=== PATIENT | female | born 1945 | race Hispanic/Latino ===

== ENCOUNTER 2017-12-14 15:28 | Emergency (ER) | payer MEDICARE ==
[~2017-12-14] VITALS: Ht 162.6 cm; Wt 93.0 kg
[~2017-12-14 15:28] MED LIST: ASPIR 8181 MG PO; CENTRUM SILVER1 EAC3 PO; HYDROCHLOROTHIA25 MG PO; JANUVIA100 MG PO; LEVETIRACETAM500 MG PO; LISINOPRIL10 MG PO; METFORMIN HCL500 MG PO; METOPROLOL TART50 MG PO; NAMENDA10 MG PO; NIFEDIPINE ER30 M1 PO; SIMVASTATIN20 MG PO
[2017-12-14 16:59] LABS: CLARITY,URINE TURBID (CLEAR); COLOR,URINE YELLOW (YELLOW)
[2017-12-14 17:00] LABS: LEUKOCYTE ESTERASE ,URINE 2+ (NEGATIVE)
[2017-12-14 17:01] LABS: BILIRUBIN,URINE NEGATIVE (NEGATIVE); KETONES,URINE NEGATIVE (NEGATIVE); NITRITE,URINE NEGATIVE (NEGATIVE); PROTEIN,URINE DIPSTICK 2+ (NEGATIVE); URINE UROBILINOGEN 0.2 mg/dL (0.2 - 1); WBC,URINE (MAN) >50 /HPF (0-5)
[2017-12-14 17:02] LABS: BACTERIA,URINE MODERATE /HPF; EPITHELIAL CELLS,URINE FEW /LPF; RBC,URINE 21-50 /HPF (0-5)
[2017-12-14] MEDS ORDERED: CEFTRIAXONE SOD 1 GM VIAL IM ONE (17:15)
== END 2017-12-14 18:04 | disposition home or self-care (01) ==
LOC: ER 15:28
DX: R33.9 Retention of urine, unspecified (principal); N30.01 Acute cystitis with hematuria
CPT/HCPCS: 51702; 81001; 87086; 87186; 99284; J0696; 51700

== ENCOUNTER 2018-02-11 16:31 | Emergency (ER) | payer MEDICARE ==
[~2018-02-11] VITALS: Ht 162.6 cm; Wt 93.0 kg
--- OUTSIDE RECORDS SUMMARY | 2018-02-11 16:33 | XMS REPORT | Continuity of Care Document ---
Author Author [facility] Interface Address Unknown Phone Unavailable Problems Problem Status Onset Date Classification Date Reported Comments Source Z12.31 - ENCNTR SCREEN MAMMOGRAM FOR MA Active 03/02/2015 [facility] 401.9 - HYPERTENSION NO Active 04/14/2013 [facility] Medications Medication Details Route Status Patient Instructions Ordering Provider Order Date Source Allergies, Adverse Reactions, Alerts Substance Category Reaction Severity Reaction type Status Date Reported Comments Source Immunizations Immunization Date Given Site Status Last Updated Comments Source Results Order Name Results Value Reference Range Date Interpretation Comments Source Knee 1-2 Views Bilateral DX Knee 1-2 Views Bilateral DX EXAM: Knee 1-2 Views Bilateral DX HISTORY: M25.562 Pain in left knee - M25.561 Pain in right knee COMPARISON: None AP and lateral views of both knees. The bones are osteopenic. There is a moderate right joint effusion and trace left joint effusion. There are small patellofemoral osteophytes on the right and trace on the left. Small right medial and lateral tibiofemoral osteophytes. No fracture or dislocation. IMPRESSION: Degenerative change of both knees as described above. Osteopenia. 09/05/2017 - - Read by: Larissa Haney MD Dictated Date/time: 09/05/17 15:41 Electronically Signed by: Larissa Haney MD 09/05/17 15:45 FINAL REPORT [facility] Digital Mammo Screening [facility] [place] Digital Mammo Screening Paul MA - DIGITAL MAMMO SCREENING PAUL MA BILATERAL DIGITAL SCREENING MAMMOGRAM WITH CAD: 03/28/2015 CLINICAL: Z12.31 Encounter For Screening Mammogram For Malignant Neoplasm Of Breast. Current study was evaluated with a Computer Aided Detection (CAD) system. Comparison is made to exam dated: 05/13/2013 mammogram - [facility]. There are scattered fibroglandular densities in both breasts. There are benign vascular calcifications in both breasts. There also are benign scattered calcifications in both breasts. No significant masses, calcifications, or other findings are seen in either breast. There has been no significant interval change. IMPRESSION: BENIGN There is no mammographic evidence of malignancy. A 1 year screening mammogram is recommended. Edgardo Solo M.D. cm/penrad:03/28/2015 15:04:05 Electrical Engineering Drafting Officer: Kimberly Morelos, [facility] This exam was dictated and interpreted by [id number] for JOSSELINE Wade. letter sent: Normal exam Mammogram BI-RADS: 2 Benign 03/28/2015 - - Read by: Ramon Bravo MD Dictated Date/time: 03/28/15 15:04 Electronically Signed by: Ramon Bravo MD 03/28/15 15:04 FINAL REPORT JOSSELINE Wade Digital Mammo Screening Paul MA Digital Mammo Screening Paul MA - DIGITAL MAMMO SCREENING PAUL MA BILATERAL DIGITAL SCREENING MAMMOGRAM WITH CAD: 05/13/2013 CLINICAL: Routine. Current study was evaluated with a Computer Aided Detection (CAD) system. No prior exams were available for comparison. There are scattered fibroglandular densities in both breasts. There are benign vascular calcifications and calcifications in both breasts. No significant masses, calcifications, or other findings are seen in either breast. IMPRESSION: BENIGN There is no mammographic evidence of malignancy. A screening mammogram in one year is recommended. Dontrell Navarro M.D. [facility]/penrad:05/13/2013 11:40:19 Electrical Engineering Drafting Officer: Ayaka COLON(R)(M), [facility] This exam was dictated and interpreted by [id number] for JOSSELINE Frazier. letter sent: Normal exam Mammogram BI-RADS: 2 Benign 05/13/2013 - - Read by: Dontrell Navarro Dictated Date/time: 05/13/13 11:40 Electronically Signed by: Dontrell Navarro MD 05/13/13 11:40 FINAL REPORT JOSSELINE Wade Bone Density-Dual Energy Absorptionmetry Bone Density-Dual Energy Absorptionmetry - Bone Density-Dual Energy Absorptionmetry BONE DENSITY EVALUATION: 05/13/2013 CLINICAL DATA: Clinical risk for osteoporosis. RISK FACTORS: . FINDINGS: Bone density evaluation was performed 05/13/2013 on the AP L1-L4 region of spine using Lunar Dual Energy X-Ray Absorptiometry. The BMD average for the exam is 0.974 g/cm2. The T-score is -1.70 and the Z-score is -0.90. These values indicate 90.0% for age-matched controls. This matches the World Health Organization's criteria for osteopenia and places the patient at a medium risk for fracture. An additional bone density evaluation was performed 05/13/2013 on the right femur neck using Lunar Dual Energy X-Ray Absorptiometry. The BMD average for the exam is 0.828 g/cm2. The T-score is -1.50 and the Z-score is -0.50. These values indicate 92.0% for age-matched controls. This matches the World Health Organization's criteria for osteopenia and places the patient at a medium risk for fracture. An additional bone density evaluation was performed 05/13/2013 on the right hip using Lunar Dual Energy X-Ray Absorptiometry. The BMD average for the exam is 0.861 g/cm2. The T-score is -1.20 and the Z-score is -0.50. These values indicate 93.0% for age-matched controls. This matches the World Health Organization's criteria for osteopenia and places the patient at a medium risk for fracture. An additional bone density evaluation was performed 05/13/2013 on the left femur neck using Lunar Dual Energy X-Ray Absorptiometry. The BMD average for the exam is 0.855 g/cm2. The T-score is -1.30 and the Z-score is -0.30. These values indicate 95.0% for age-matched controls. This matches the World Health Organization's criteria for osteopenia and places the patient at a medium risk for fracture. An additional bone density evaluation was performed 05/13/2013 on the left hip using Lunar Dual Energy X-Ray Absorptiometry. The BMD average for the exam is 0.920 g/cm2. The T-score is -0.70. These values indicate 100.0% for age- matched controls. This matches the World Health Organization's criteria for normal bone density and places the patient within normal limits of fracture risk. IMPRESSION: OSTEOPENIA Patient is at medium risk for fracture. Dontrell jha/kee:05/13/2013 10:25:20 Electrical Engineering Drafting Officer: Merari Culver 05/13/2013 - - Read by: Dontrell Navarro Dictated Date/time: 05/13/13 10:25 Electronically Signed by: Dontrell Navarro MD 05/13/13 10:25 FINAL REPORT [facility] Chest 2 views Chest 2 views CHEST RADIOGRAPHY CLINICAL HISTORY: Hypertension. COMPARISON IMAGING: None. FINDINGS: Two views of the chest were acquired and submitted for evaluation. No pleural fluid is identified. The contour of the cardiac silhouette is within normal limits. There is no significant pulmonary consolidation or nodularity. Bones appear osteopenic. DEXA scan should be considered if not already performed. IMPRESSION: No acute cardiopulmonary abnormality. 04/14/2013 - - Read by: Bubba Guaman Dictated Date/time: 04/14/13 09:00 Electronically Signed by: Bubba Guaman MD 04/14/13 09:01 FINAL REPORT [facility] Vital Signs Vital Sign Value Date Comments Source Encounters Location Location Details Encounter Type Encounter Number Reason For Visit Attending Provider ADM Date DC Date Status Source OD [id number] 401.9 - HYPERTENSION NO [place] 04/14/2013 Active [facility] [id number] [place] 03/28/2015 03/29/2015 [facility] [id number] [place] 09/05/2017 09/06/2017 [facility] Procedures Procedure Code Date Perfomer Comments Source
[2018-02-11] MEDS ORDERED: MEROPENEM 1GM 100 ML IV STA (16:53)
[2018-02-11] MEDS ORDERED: SODIUM CHLORIDE 0.9% 1000ML 1,000 ML IV STA (16:53)
[2018-02-11] MEDS ORDERED: MEROPENEM 1 GM VIAL IV ONE (17:20)
[2018-02-11 18:04] LABS: BASOPHILS # (AUTO) 0.1 (0.0-0.1); BASOPHILS % 0.4 % (0.0-1.0); EOSINOPHILS # (AUTO) 0.2 (0.0-0.4); EOSINOPHILS % 2.1 % (0.0-6.0); HEMATOCRIT 44.2 % (34.2-44.1); HEMOGLOBIN 14.4 g/dL (12.0-16.0); LYMPHOCYTES # (AUTO) 3.2 (1.0-3.2); LYMPHOCYTES % 28.5 % (18.0-39.1); MEAN CORPUSCULAR HEMOGLOBIN 25.2 pg (28-32); MEAN CORPUSCULAR HGB CONC 32.6 g/dL (31-35); MEAN CORPUSCULAR VOLUME 77.4 fL (81-99); MONOCYTES % 9.2 % (4.4-11.3); NEUTROPHILS # (AUTO) 6.6 (2.1-6.9); NEUTROPHILS % 59.4 % (38.7-80.0); PLATELET COUNT 275 x10e3/uL (140-360); RED BLOOD COUNT 5.71 x10e6/uL (3.6-5.1); RED CELL DISTRIBUTION WIDTH 14.2 % (11.7-14.4)
[2018-02-11 18:22] LABS: ALANINE AMINOTRANSFERASE 19 IU/L (0-55); ALBUMIN 3.2 g/dL (3.5-5.0); ALBUMIN/GLOBULIN RATIO 0.7 (0.8-2.0); ALKALINE PHOSPHATASE 106 IU/L (40-150); ANION GAP 18.9 mmol/L (8-16); BLOOD UREA NITROGEN 20 mg/dL (7-26); BUN/CREATININE RATIO 24 (6-25); CALCIUM 9.9 mg/dL (8.4-10.2); CARBON DIOXIDE 20 mmol/L (22-29); CHLORIDE 99 mmol/L (98-107); CREATININE, SERUM 0.85 mg/dL (0.57-1.11); EST GLOMERULAR FILTRATION RATE > 60 ML/MIN (60-); GLUCOSE 243 mg/dL (74-118); POTASSIUM 3.9 mmol/L (3.5-5.1); SODIUM 134 mmol/L (136-145)
[2018-02-11 18:45] LABS: CLARITY,URINE CLOUDY (CLEAR); COLOR,URINE YELLOW (YELLOW); LEUKOCYTE ESTERASE ,URINE 2+ (NEGATIVE); NITRITE,URINE NEGATIVE (NEGATIVE)
[2018-02-11 18:46] LABS: BILIRUBIN,URINE NEGATIVE (NEGATIVE); KETONES,URINE NEGATIVE (NEGATIVE); PROTEIN,URINE DIPSTICK 2+ (NEGATIVE); URINE UROBILINOGEN 0.2 mg/dL (0.2 - 1)
[2018-02-11 18:59] LABS: WBC,URINE (MAN) >50 /HPF (0-5)
[2018-02-11 19:00] LABS: BACTERIA,URINE MANY /HPF; EPITHELIAL CELLS,URINE FEW /LPF; RBC,URINE 21-50 /HPF (0-5)
[2018-02-11 19:28] VITALS: BP 140/88
== END 2018-02-11 20:20 | disposition home or self-care (01) ==
LOC: ER 16:31
DX: R30.0 Dysuria (principal); R11.0 Nausea; R10.2 Pelvic and perineal pain; N30.01 Acute cystitis with hematuria; R26.2 Difficulty in walking, not elsewhere classified
CPT/HCPCS: 36415; 51702; 80053; 81001; 85025; 87086; 87186; 99284; J2185; J7030; 51700

== ENCOUNTER 2018-04-05 12:18 | Emergency (ER) | payer MEDICARE ==
[~2018-04-05] VITALS: Ht 162.6 cm; Wt 93.0 kg
[2018-04-05 14:50] LABS: CLARITY,URINE CLOUDY (CLEAR); COLOR,URINE YELLOW (YELLOW); KETONES,URINE NEGATIVE (NEGATIVE); LEUKOCYTE ESTERASE ,URINE 2+ (NEGATIVE); NITRITE,URINE NEGATIVE (NEGATIVE); PROTEIN,URINE DIPSTICK NEGATIVE (NEGATIVE); URINE UROBILINOGEN 0.2 mg/dL (0.2 - 1)
[2018-04-05 14:51] LABS: BILIRUBIN,URINE NEGATIVE (NEGATIVE)
[2018-04-05 15:01] LABS: BACTERIA,URINE MANY /HPF; WBC,URINE (MAN) >50 /HPF (0-5)
[2018-04-05 15:03] LABS: EPITHELIAL CELLS,URINE FEW /LPF; RBC,URINE 21-50 /HPF (0-5)
[2018-04-05] MEDS ORDERED: MACROBID 100 M100 MG PO (15:28)
== END 2018-04-05 15:50 | disposition home or self-care (01) ==
LOC: ER 12:18
DX: T83.018A Breakdown (mechanical) of other urinary catheter, initial encounter (principal); N30.91 Cystitis, unspecified with hematuria; I10 Essential (primary) hypertension; E11.9 Type 2 diabetes mellitus without complications; E78.5 Hyperlipidemia, unspecified; Z85.828 Personal history of other malignant neoplasm of skin; Z86.711 Personal history of pulmonary embolism
CPT/HCPCS: 51700; 81001; 87086; 87186; 99284

== ENCOUNTER 2018-04-25 12:17 | Inpatient (IN) | payer MEDICARE ==
[~2018-04-25] VITALS: Ht 149.9 cm; Wt 105.2 kg
[2018-04-25] MEDS: ACETAMINOPHEN 325 MG TAB PO PRN (11:00)
[2018-04-25] MEDS: MEROPENEM 1GM 100 ML IV SCH ×2 (11:40→16:20)
[~2018-04-25 12:17] MED LIST changes: +MACROBID 100 M100 MG PO
[2018-04-25] MEDS ORDERED: FLUCONAZOLE 200 MG/100 ML 100 ML IV ONE (13:30)
[2018-04-25 14:02] LABS: BASOPHILS # (AUTO) 0.1 (0.0-0.1); BASOPHILS % 0.2 % (0.0-1.0); HEMATOCRIT 42.5 % (34.2-44.1); HEMOGLOBIN 13.8 g/dL (12.0-16.0); LYMPHOCYTES # (AUTO) 1.2 (1.0-3.2); LYMPHOCYTES % 5.6 % (18.0-39.1); MEAN CORPUSCULAR HEMOGLOBIN 25.5 pg (28-32); MEAN CORPUSCULAR HGB CONC 32.5 g/dL (31-35); MEAN CORPUSCULAR VOLUME 78.6 fL (81-99); MONOCYTES # (AUTO) 1.4 (0.2-0.8); MONOCYTES % 6.5 % (4.4-11.3); NEUTROPHILS # (AUTO) 18.6 (2.1-6.9); NEUTROPHILS % 86.9 % (38.7-80.0); PLATELET COUNT 259 x10e3/uL (140-360); RED BLOOD COUNT 5.41 x10e6/uL (3.6-5.1); RED CELL DISTRIBUTION WIDTH 14.7 % (11.7-14.4)
[2018-04-25 14:13] LABS: BILIRUBIN,URINE NEGATIVE (NEGATIVE); CLARITY,URINE HAZY (CLEAR); COLOR,URINE YELLOW (YELLOW); KETONES,URINE NEGATIVE (NEGATIVE); LEUKOCYTE ESTERASE ,URINE 2+ (NEGATIVE); NITRITE,URINE NEGATIVE (NEGATIVE); PROTEIN,URINE DIPSTICK 1+ (NEGATIVE); URINE UROBILINOGEN 0.2 mg/dL (0.2 - 1)
[2018-04-25 14:22] LABS: WBC,URINE (MAN) >50 /HPF (0-5)
[2018-04-25 14:23] LABS: BACTERIA,URINE MANY /HPF
[2018-04-25 14:23] LABS: ALANINE AMINOTRANSFERASE 22 IU/L (0-55); ALBUMIN 3.2 g/dL (3.5-5.0); ALBUMIN/GLOBULIN RATIO 0.8 (0.8-2.0); ALKALINE PHOSPHATASE 115 IU/L (40-150); ANION GAP 15.2 mmol/L (8-16); BLOOD UREA NITROGEN 21 mg/dL (7-26); BUN/CREATININE RATIO 27 (6-25); CALCIUM 9.4 mg/dL (8.4-10.2); CARBON DIOXIDE 22 mmol/L (22-29); CHLORIDE 99 mmol/L (98-107); CREATININE, SERUM 0.77 mg/dL (0.57-1.11); EST GLOMERULAR FILTRATION RATE > 60 ML/MIN (60-); GLUCOSE 323 mg/dL (74-118); POTASSIUM 4.2 mmol/L (3.5-5.1); SODIUM 132 mmol/L (136-145)
--- NOTE | 2018-04-25 14:50 | NUR ---
Krys lopez in [facility] - 04/25/18 at 1547 by JUAN PATIENT NOT IN ROOM FOR EVALUATION. THEY ARE IN RADIOLOGY
[2018-04-25] MEDS ORDERED: SODIUM CHLORIDE 0.9% 1000ML 1,000 ML IV ONE (15:45)
[2018-04-25] MEDS ORDERED: SODIUM CHLORIDE FLUSH 10 ML SYR INJ PRN (15:45)
[2018-04-25] MEDS ORDERED: INSULIN REGULAR, HUMAN 100 UNIT/1 ML 3ML VIAL SQ ONE (15:45)
[2018-04-25] MEDS ORDERED: DEXTROSE 50% SYRINGE 50 ML IV PRN (15:45)
[2018-04-25] MEDS ORDERED: KETOROLAC TROMETHAMINE 30 MG/ML VIAL IV ONE (15:45)
[2018-04-25] MEDS ORDERED: ONDANSETRON HCL INJ 2MG/ML 2ML 2 MG/ML VIAL IV PRN (15:45)
--- NOTE | 2018-04-25 15:47 | NUR ---
PATIENT CONTINUALLY TAKING OFF PULSE OX AND BP CUFF. SON AT BEDSIDE REMINDING HER WE NEED TO KEEP IT ON. PATIENT A/O X 3.
[2018-04-25] MEDS ORDERED: MORPHINE SULFATE INJ 4 MG/ML INJ 1ML IV PRN (16:00)
[2018-04-25] MEDS ORDERED: MORPHINE SULFATE 2 MG/ML SYR 1ML IV PRN (17:00)
[2018-04-25 17:23] VITALS: BP 119/58
--- NOTE | 2018-04-25 17:23 | NUR ---
Received patient from ER via stretcher. Accompanied by . AAOX3 to time, person, place. Luxembourger speaking. Respirations even and unlabored. 16F bruce draining cloudy yellow urine. Sediment noted. Oriented patient and to room. Instructed to use call light for assistance. Voiced understanding.
[2018-04-25] MEDS ORDERED: ACETAMINOPHEN 325 MG TAB PO PRN (17:30)
[2018-04-25] MEDS ORDERED: HYDRALAZINE HCL 20 MG/ML VIAL IV PRN (17:30)
[2018-04-25] MEDS: SODIUM CHLORIDE 0.9% 1000ML 1,000 ML IV SCH (17:40)
[2018-04-25] MEDS: INSULIN REGULAR, HUMAN 100 UNIT/1 ML 3ML VIAL SQ SCH (17:40)
[2018-04-25 17:45] VITALS: BP 119/58
[2018-04-25] MEDS ORDERED: ATORVASTATIN CA10 MG PO (18:03)
[2018-04-25] MEDS ORDERED: CYMBALTA20 MG PO (18:03)
[2018-04-25] MEDS ORDERED: ACETAMINOPHEN325 M1 PO (18:03)
[2018-04-25] MEDS ORDERED: GABAPENTIN100 MG PO (18:03)
[2018-04-25] MEDS ORDERED: GLIMEPIRIDE2 MG PO (18:03)
[2018-04-25] MEDS ORDERED: WARFARIN SODIUM2 MG PO (18:03)
[2018-04-25] MEDS ORDERED: TRADJENTA5 MG PO (18:03)
[2018-04-25] MEDS ORDERED: LOSARTAN POTASS25 MG PO (18:03)
[2018-04-25] MEDS ORDERED: PROBIOTIC & AC1 EACH PO (18:03)
--- NOTE | 2018-04-25 18:25 | NUR ---
Sam LUCIA aware of WBC 21.39 and T100.4. See orders.
[2018-04-25 18:35] VITALS: BP 119/59
--- NOTE | 2018-04-25 18:48 | NUR ---
handoff report rec'd during walking rounds.
[2018-04-25 19:30] VITALS: BP 110/57
[2018-04-25] MEDS: ATORVASTATIN 10 MG TAB PO SCH (21:50)
[2018-04-25] MEDS: GABAPENTIN 100 MG CAP PO SCH (21:50)
[2018-04-25 23:00] VITALS: BP 119/59
--- NOTE | 2018-04-25 23:26 | NUR ---
CALL PLACED TO KHARI LAWRENCE TO INFORM OF SIRS ALERT.
[2018-04-26] VITALS (7 sets, daily range): BP systolic 109–143; BP diastolic 53–75
[2018-04-26] MEDS: SODIUM CHLORIDE 0.9% 1000ML 1,000 ML IV SCH ×4 (00:04→18:32)
[2018-04-26] MEDS ORDERED: ACETAMINOPHEN 1000 MG/100 ML IV STA (00:09)
--- NOTE | 2018-04-26 00:10 | NUR ---
CALL PLACED TO KHARI RAMIREZ TO INFORM OF ELEVATED TEMPERATURE AND HR. ORDERS REC'D.
[2018-04-26] MEDS ORDERED: METOPROLOL TARTRATE INJ 1 MG/ML VIAL IV PRN ×2 (00:15)
--- NOTE | 2018-04-26 00:42 | NUR ---
STAT LABS DRAWN AND SENT TO LAB AT THIS TIME; 12 LEAD EKG AT BEDSIDE NOW; RADIOLOGY AWARE OF STAT CXR.
[2018-04-26 01:17] LABS: BASOPHILS % 0.2 % (0.0-1.0); EOSINOPHILS % 0.1 % (0.0-6.0); HEMATOCRIT 36.7 % (34.2-44.1); LYMPHOCYTES # (AUTO) 0.7 (1.0-3.2); LYMPHOCYTES % 3.8 % (18.0-39.1); MEAN CORPUSCULAR HEMOGLOBIN 25.8 pg (28-32); MEAN CORPUSCULAR HGB CONC 32.7 g/dL (31-35); MEAN CORPUSCULAR VOLUME 78.9 fL (81-99); MONOCYTES # (AUTO) 1.5 (0.2-0.8); MONOCYTES % 8.5 % (4.4-11.3); NEUTROPHILS # (AUTO) 14.9 (2.1-6.9); NEUTROPHILS % 86.9 % (38.7-80.0); PLATELET COUNT 194 x10e3/uL (140-360); RED BLOOD COUNT 4.65 x10e6/uL (3.6-5.1)
[2018-04-26 01:36] LABS: ALANINE AMINOTRANSFERASE 17 IU/L (0-55); ALBUMIN 2.6 g/dL (3.5-5.0); ALBUMIN/GLOBULIN RATIO 0.8 (0.8-2.0); ALKALINE PHOSPHATASE 91 IU/L (40-150); ANION GAP 11.2 mmol/L (8-16); BLOOD UREA NITROGEN 16 mg/dL (7-26); BUN/CREATININE RATIO 28 (6-25); CALCIUM 8.2 mg/dL (8.4-10.2); CARBON DIOXIDE 21 mmol/L (22-29); CHLORIDE 104 mmol/L (98-107); CREATININE, SERUM 0.58 mg/dL (0.57-1.11); EST GLOMERULAR FILTRATION RATE > 60 ML/MIN (60-); GLUCOSE 197 mg/dL (74-118); SODIUM 133 mmol/L (136-145)
[2018-04-26 01:45] LABS: POTASSIUM 3.2 mmol/L (3.5-5.1)
[2018-04-26 01:57] LABS: FREE T4 (FREE THYROXINE) 1.11 ng/dL (0.9-1.8); THYROID STIMULATING HORMONE 0.022 uIU/mL (0.350-4.940)
--- NOTE | 2018-04-26 02:04 | Diagnostic Imaging Report ---
EXAMINATION: CHEST SINGLE (PORTABLE) INDICATION: SEPSIS PROTOCOL COMPARISON: None FINDINGS: AP view TUBES and LINES: None. LUNGS: Low lung volumes with vascular crowding and bibasilar atelectasis. PLEURA: No pleural effusion or pneumothorax. HEART AND MEDIASTINUM: The cardiomediastinal silhouette is unremarkable for technique. BONES AND SOFT TISSUES: No acute osseous lesion. Soft tissues are unremarkable. UPPER ABDOMEN: No free air under the diaphragm. IMPRESSION: Low lung volumes with vascular crowding and bibasilar atelectasis. Signed by: DR. Dino Meehan MD on 04/26/2018 2:01 AM
--- NOTE | 2018-04-26 02:20 | NUR ---
temperature 99.8 via temporal artery.
[2018-04-26] MEDS ORDERED: MAGNESIUM SULF 1GRAM/DEXTROSE 100 ML IV PRN (02:45)
[2018-04-26] MEDS ORDERED: POTASSIUM CHLORIDE 20MEQ/100ML 200 ML IV ONE (02:45)
[2018-04-26 03:46] LABS: INR 1.06; PROTHROMBIN TIME 14.8 seconds (11.9-14.5)
--- NOTE | 2018-04-26 05:30 | NUR ---
URINARY CONSULTATION CALLED AT THIS TIME FOR DR. VALENTINA SOTEOL. PER MARIA GUADALUPE, ANSWERING SERVICE, DR. Alvina SOTELO IS COVERING.
--- NOTE | 2018-04-26 05:39 | NUR ---
Angelia Huntley NP rounding at bedside.
[2018-04-26] MEDS ORDERED: FUROSEMIDE INJ 10 MG/ML 2 ML VIAL IV ONE (06:15)
[2018-04-26] MEDS: INSULIN REGULAR, HUMAN 100 UNIT/1 ML 3ML VIAL SQ SCH ×4 (07:30→21:20)
--- NOTE | 2018-04-26 08:00 | Diagnostic Imaging Report ---
Knee limited right CPT code: 79392 Indication: Pain and limited range of motion status post fall Technique: AP and cross table lateral view obtained of the right knee. Comparison: None Findings: Study is compromised due to patient contraction. No evidence of fracture or dislocation on lateral image. AP image does not include the femur or patella. Visualized portions of the tibia and fibula are intact. No evidence of knee effusion or radiopaque foreign body. IMPRESSION: Compromised examination due to patient contraction. No fractures on provided images. Signed by: Dr. Jluis Delgado MD on 04/26/2018 7:57 AM
[2018-04-26] MEDS ORDERED: LEVETIRACETAM 500 MG TAB PO SCH (09:00)
[2018-04-26] MEDS ORDERED: MEMANTINE 10 MG TAB PO SCH (09:00)
[2018-04-26] MEDS ORDERED: METOPROLOL TARTRATE 50 MG TAB PO SCH (09:00)
[2018-04-26] MEDS: MEROPENEM 1GM 100 ML IV SCH ×3 (09:00→23:27)
[2018-04-26] MEDS ORDERED: DULOXETINE HCL 20 MG DELAYED RELEASE PO SCH (09:00)
[2018-04-26] MEDS: NON-FORMULARY MEDICATION (Linagliptin (Tradjenta) 5 MG) PO SCH (09:00)
[2018-04-26] MEDS: MEMANTINE 10 MG TAB PO SCH ×2 (11:00→21:19)
[2018-04-26] MEDS: GLIMEPIRIDE 2 MG TAB PO SCH ×2 (11:00→16:45)
[2018-04-26] MEDS: METOPROLOL TARTRATE 50 MG TAB PO SCH ×2 (11:00→21:19)
[2018-04-26] MEDS: DULOXETINE HCL 20 MG DELAYED RELEASE PO SCH ×2 (11:00→21:19)
[2018-04-26] MEDS: NIFEDIPINE CR 30 MG TAB PO SCH (11:00)
[2018-04-26] MEDS: LOSARTAN POTASSIUM 25 MG TAB PO SCH (11:00)
[2018-04-26] MEDS: LEVETIRACETAM 500 MG TAB PO SCH ×2 (11:00→21:19)
[2018-04-26] MEDS: LACTOBACILLUS ACIDOPHILUS CAPSULE PO SCH (11:00)
--- NOTE | 2018-04-26 11:00 | NUR ---
HOME MEDICATIONS VERIFIED WITH PT BOTTLES OF MEDICATION, TOLERATED AM MEDS
--- NOTE | 2018-04-26 12:24 | NUR ---
MD Alvina SOTELO INTO SEE PT, DISCUSSED POC , PT REPOSITIONED, HOB ELEVATED, LUNCH TRAY SET UP, CALL LIGHT WITHIN REACH
--- NOTE | 2018-04-26 13:21 | NUR ---
Nutrition Screen Note RD Recommendation for Physician: Continue diet as ordered Plan of Care: RD following, monitoring for adequacy and tolerance Nutrition reason for involvement: Nutrition Risk Trigger - MST Primary Diagnose(s): UTI Ht: 59in Wt:178.31lbs BMI:36 kg/m2 IBW:95lbs RD Assessment:04/26/2018 Initial encounter with Patient. Maori speaking patient. Maori speaking staff member translated for the RD during interview. Pt states that sometimes her medications decrease her appetite, but eats well otherwise. Pt denies N,V, D nor has any difficulty chewing or swallowing. Pt denies any wt changes. Current Diet: 1800 ADA diet Malnutrition Evaluation (04/26/2018) The patient does not meet criteria for a specified degree of malnutrition at this time. Will re-evaluate at follow-up as appropriate. Diet Education Needs Assessment: Diet education not indicated. Diet Adequacy: (Meeting calorie needs, Meeting protein needs, Meeting fluid needs, Not meeting calorie needs, Not meeting protein needs) Tolerance: Tolerating PO Nutrition Care Level: Morales Cho RD, LD, CNSC
[2018-04-26] MEDS: ACETAMINOPHEN 325 MG TAB PO PRN ×2 (16:44→23:24)
[2018-04-26] MEDS: WARFARIN SOD 2 MG TAB PO SCH (16:47)
[2018-04-26] MEDS: ATORVASTATIN 10 MG TAB PO SCH (21:19)
[2018-04-26] MEDS: GABAPENTIN 100 MG CAP PO SCH (21:19)
[2018-04-27] VITALS (8 sets, daily range): BP systolic 114–138; BP diastolic 58–72
--- NOTE | 2018-04-27 00:58 | Consultation ---
DATE OF CONSULTATION: April 26, 2018 SERVICE: Urology. ATTENDING PHYSICIAN: Dr. Cm Gaytan. REASON FOR THE VISIT: UTI. HISTORY OF PRESENT ILLNESS: This is a 72-year-old patient that was admitted to the hospital through the emergency room. The patient does have chronic indwelling Stanley catheter. She states the Stanley catheter has been there for over 4 months. She states that she did have a fall and is unable to walk, probably has not been walking for quite a longer time due to the contraction of her lower extremities. The patient is a relatively poor historian. REVIEW OF SYSTEMS: The patient denies any nausea or vomiting. No fever or chills. She did have some redness in the genital area, although this was negative. PAST MEDICAL HISTORY: As mentioned earlier. MEDICATIONS: See MAR. SOCIAL HISTORY: Never smoked. No use of alcohol or illicit drugs. FAMILY HISTORY: Hypertension. PHYSICAL EXAMINATION GENERAL: Patient appeared to be awake. VITAL SIGNS: Blood pressure 125/85, pulse 88, temperature 98.6, and respirations 18. HEENT: Head is symmetric. Eyes, normal movement. NECK: Supple. No CVA tenderness. Pulse regular. ABDOMEN: Soft, not tender. Bowel sounds present. EXTREMITIES: Significant contraction of lower extremities. It is difficult inspected even the genitalia, which appeared to be unremarkable. NEUROLOGICAL: She is oriented x3. LABORATORY DATA: Hemoglobin 12, white count 17.1, creatinine 0.58, BUN 16, sodium 133, potassium 3.2, chloride 104, and bicarb 21. INR 1.02. Urine, over 50 white blood cells per high-power field. IMPRESSION 1. Urinary tract infection. 2. Chronic Stanley. 3. Arthritis. 4. Contracted lower extremities. 5. History of back injury. 6. Leukocytosis. 7. Low potassium. PLAN: Recommend to keep the Stanley catheter in place and planning to follow the patient. Pending the culture, we will consider additional steps. Thank you for the consult. I will follow with you. Job#: [id number] LPA
[2018-04-27 04:20] LABS: BASOPHILS % 0.4 % (0.0-1.0); EOSINOPHILS % 0.1 % (0.0-6.0); HEMATOCRIT 37.6 % (34.2-44.1); HEMOGLOBIN 12.1 g/dL (12.0-16.0); LYMPHOCYTES # (AUTO) 1.8 (1.0-3.2); LYMPHOCYTES % 16.6 % (18.0-39.1); MEAN CORPUSCULAR HEMOGLOBIN 25.5 pg (28-32); MEAN CORPUSCULAR HGB CONC 32.2 g/dL (31-35); MEAN CORPUSCULAR VOLUME 79.3 fL (81-99); MONOCYTES % 8.9 % (4.4-11.3); NEUTROPHILS # (AUTO) 8.2 (2.1-6.9); NEUTROPHILS % 73.4 % (38.7-80.0); PLATELET COUNT 165 x10e3/uL (140-360); RED BLOOD COUNT 4.74 x10e6/uL (3.6-5.1); RED CELL DISTRIBUTION WIDTH 15.2 % (11.7-14.4)
[2018-04-27 04:29] LABS: ANION GAP 11.1 mmol/L (8-16); BLOOD UREA NITROGEN 9 mg/dL (7-26); BUN/CREATININE RATIO 16 (6-25); CALCIUM 8.8 mg/dL (8.4-10.2); CARBON DIOXIDE 22 mmol/L (22-29); CHLORIDE 101 mmol/L (98-107); CREATININE, SERUM 0.55 mg/dL (0.57-1.11); EST GLOMERULAR FILTRATION RATE > 60 ML/MIN (60-); GLUCOSE 109 mg/dL (74-118); MAGNESIUM 1.7 MG/DL (1.3-2.1); POTASSIUM 3.1 mmol/L (3.5-5.1); SODIUM 131 mmol/L (136-145)
[2018-04-27] MEDS ORDERED: POTASSIUM CHLORIDE 20 MEQ TAB CR PO STA (05:16)
[2018-04-27] MEDS: ACETAMINOPHEN 325 MG TAB PO PRN ×2 (07:07→18:08)
[2018-04-27 08:22] LABS: INR 1.1; PROTHROMBIN TIME 15.2 seconds (11.9-14.5)
[2018-04-27] MEDS: MEROPENEM 1GM 100 ML IV SCH ×3 (08:22→23:41)
[2018-04-27] MEDS: GLIMEPIRIDE 2 MG TAB PO SCH ×2 (08:22→17:22)
[2018-04-27] MEDS: NON-FORMULARY MEDICATION (Linagliptin (Tradjenta) 5 MG) PO SCH (08:22)
[2018-04-27] MEDS: INSULIN REGULAR, HUMAN 100 UNIT/1 ML 3ML VIAL SQ SCH ×4 (08:22→22:15)
[2018-04-27] MEDS: DULOXETINE HCL 20 MG DELAYED RELEASE PO SCH ×2 (08:23→21:50)
[2018-04-27] MEDS: LEVETIRACETAM 500 MG TAB PO SCH ×2 (08:23→21:50)
[2018-04-27] MEDS: LOSARTAN POTASSIUM 25 MG TAB PO SCH (08:23)
[2018-04-27] MEDS: NIFEDIPINE CR 30 MG TAB PO SCH ×2 (08:23→12:17)
[2018-04-27] MEDS: METOPROLOL TARTRATE 50 MG TAB PO SCH ×2 (08:23→21:50)
[2018-04-27] MEDS: LACTOBACILLUS ACIDOPHILUS CAPSULE PO SCH (08:23)
[2018-04-27] MEDS: MEMANTINE 10 MG TAB PO SCH ×2 (08:23→21:50)
--- NOTE | 2018-04-27 08:38 | NUR ---
SPOKE WITH ELECTRONIC WARFARE LINGUIST FABRICE GONZALEZ REGARDING PT RIGHT LEG SWELLING AND HOT TO THE TOUCH . NEW ORDERS FOR VENOUS DOPPLER ORDER TO R/O DVT
--- NOTE | 2018-04-27 09:29 | NUR ---
Met with patient and nurse Jada RN to interpret. Notified pt that physician ordered home health and she agrees with this. She denies ever having home health. She agreed to [facility] and signed choice letter. Original placed in chart, and copy placed in her bedside folder. Clinical faxed to [facility].
--- NOTE | 2018-04-27 10:23 | NUR ---
DOPPLER OF BILATERAL LOWER LEGS IS NEGATIVE AT THIS TIME
[2018-04-27] MEDS: SODIUM CHLORIDE 0.9% 1000ML 1,000 ML IV SCH (10:58)
[2018-04-27] MEDS: WARFARIN SOD 2 MG TAB PO SCH (17:22)
--- NOTE | 2018-04-27 18:09 | NUR ---
PT HAS A TEMP OF 101.6, GIVEN TYLENOL FOR FEVER AT THIS TIME
--- NOTE | 2018-04-27 19:00 | NUR ---
Completed bedside rounds with morning nurse. Right side lying. Pt alert to name, Azeri Speaking only. Family at bedside. Denies pain at this time. 16 Fr Stanley draining. No acute distress noted.
--- NOTE | 2018-04-27 19:50 | NUR ---
Pt transferred to room 212 via stretcher. ESBL, urine. 16 Fr Stanley draining cloudy, dark geo urine. Report given to nurse. Alert to name, Slovak speaking only. No acute distress noted. Denies pain at this time. Family at bedside
--- NOTE | 2018-04-27 19:55 | NUR ---
Pt received from [facility] and transferred to room 212 via hospital bed. Alert and oriented x3. Indonesian speaking only. On contact isolation for ESBL of urine. 16 Fr Stanley draining cloudy, dark geo urine. Patient is bed bound and thus being turned q2hr. No acute distress noted. Denies pain at this time. Family at bedside.
--- NOTE | 2018-04-27 20:19 | Consultation ---
DATE OF CONSULTATION: April 27, 2018 REASON FOR CONSULTATION: Right leg pain. HISTORY OF PRESENT ILLNESS: This patient is a 72-year-old female with a significant history of dysmobility and uncontrolled diabetes mellitus. She is a poor historian. Her history is actually obtained from who is present. She reportedly had a fall over 6 months ago. She presented to [facility] [place] where she reportedly resided for roughly 3 weeks. According to the , she refused therapy while she was hospitalized and she has not walked since this fall. He states she has mainly been in a bed for the last 6 months and spends infrequent periods of time in a wheelchair. He states she has not been able to straighten the legs over the last several months. She complains of pain behind the right knee and around the anterior aspect of the knee. PAST MEDICAL HISTORY: See H and P. SOCIAL HISTORY: Patient denies use of alcohol or nicotine. PHYSICAL EXAMINATION GENERAL: This is a morbidly obese female. She is in no apparent distress. She has a flat affect. She is awake and oriented, but is not engaged in answering questions. EXTREMITIES: Gross inspection of both lower extremities shows severe contractures of both lower extremities at both knees. There is mild chronic swelling in both knees. There is no erythema or skin changes. She has severe calf atrophy in the right lower extremity. Range of motion in the right knee severely limited. She refuses any attempts at extension. The knee is contracted all the way up to 125 degrees. Range of motion in the left knee shows roughly negative 90 degrees to 125 degrees of flexion. Both knees appears grossly stable. Further examination is compromised due to her severe contractures and refusal of extension. Her claves are soft and nontender. Both feet are grossly sensate. Pedal pulses palpable in both feet. IMAGING: X-rays of the right knee were obtained. These are suboptimal due to positioning and her severe contracture, neither the radiologist or I appreciate any fracture. The alignment is difficult to assess because of positioning. Perhaps there is some arthritic changes in the knee. The bones are severely osteopenic. ASSESSMENT AND PLAN: This is a 72-year-old female with severe flexion contractures of both lower extremities at the knees and severe dysmobility. The findings were discussed with the patient and the . It is unclear why she has refused to walk for the last 6 months. I explained that it is quite unusual for someone to develop such severe flexion contracture in such a short amount of time apart from some neuromuscular disease. I suspect, this is likely pain-mediated. She perhaps has arthritis in the knee. She states that she would like to walk again or at least improve on her mobility. I made it clear that she must participate with physical therapy to make any improvements in her range of motion and mobility and my expectations are limited. The is requesting something to improve her right knee pain. After discussing the options, we elected to proceed with an injection of the right knee. After obtaining verbal consent, I injected the right knee with a mixture of 1 mL Depo-Medrol 40 mg and 8 mL of lidocaine 2%. Sterile technique was used. The patient tolerated the injection well. We will quickly reassess the patient tomorrow to gauge her response. If she is amenable, I would recommend mobilization with physical therapy. Again, my expectations are limited. Thank you kindly for the consult. Dictated By: Braulio Whittington PA-C Job#: [id number] SUMANTH
[2018-04-27] MEDS: GABAPENTIN 100 MG CAP PO SCH (21:50)
[2018-04-27] MEDS: ATORVASTATIN 10 MG TAB PO SCH (21:50)
[2018-04-28 04:00] VITALS: BP 120/61
[2018-04-28 04:21] LABS: BASOPHILS % 0.1 % (0.0-1.0); HEMATOCRIT 37.6 % (34.2-44.1); HEMOGLOBIN 12.3 g/dL (12.0-16.0); LYMPHOCYTES # (AUTO) 0.9 (1.0-3.2); LYMPHOCYTES % 13.8 % (18.0-39.1); MEAN CORPUSCULAR HEMOGLOBIN 25.6 pg (28-32); MEAN CORPUSCULAR HGB CONC 32.7 g/dL (31-35); MEAN CORPUSCULAR VOLUME 78.2 fL (81-99); MONOCYTES # (AUTO) 0.2 (0.2-0.8); MONOCYTES % 3.5 % (4.4-11.3); NEUTROPHILS # (AUTO) 5.6 (2.1-6.9); NEUTROPHILS % 82.3 % (38.7-80.0); PLATELET COUNT 165 x10e3/uL (140-360); RED BLOOD COUNT 4.81 x10e6/uL (3.6-5.1); RED CELL DISTRIBUTION WIDTH 14.7 % (11.7-14.4)
[2018-04-28 04:41] LABS: ANION GAP 11.7 mmol/L (8-16); BLOOD UREA NITROGEN 14 mg/dL (7-26); BUN/CREATININE RATIO 26 (6-25); CALCIUM 8.8 mg/dL (8.4-10.2); CARBON DIOXIDE 22 mmol/L (22-29); CHLORIDE 105 mmol/L (98-107); CREATININE, SERUM 0.54 mg/dL (0.57-1.11); EST GLOMERULAR FILTRATION RATE > 60 ML/MIN (60-); GLUCOSE 197 mg/dL (74-118); MAGNESIUM 1.8 MG/DL (1.3-2.1); POTASSIUM 3.7 mmol/L (3.5-5.1); SODIUM 135 mmol/L (136-145)
[2018-04-28] MEDS ORDERED: ULTRAM 50MG50 MG PO (06:11)
--- NOTE | 2018-04-28 06:30 | NUR ---
Angelia Huntley visited patient in room and conversed with patient (via press washer, Marcy) explaining plan of care. Angelia encouraged patient to get up and try to walk. Antibiotic treatment and length of treatment explained to patient.
--- NOTE | 2018-04-28 06:48 | NUR ---
Called and coversed with patient's son (Vinay). Vinay informed that Angelia Huntley (EXPANSION ENVELOPE MAKER HAND) came this morning and explained to the patient the importance of trying to get and ambulate. Informed Vinay that PT will work with patient today and CM will also aid in helping provide information for best option to obtain antibiotic treatment.
[2018-04-28] MEDS: INSULIN REGULAR, HUMAN 100 UNIT/1 ML 3ML VIAL SQ SCH ×3 (07:30→18:21)
[2018-04-28 07:47] VITALS: BP 123/63
[2018-04-28 07:51] VITALS: BP 123/63
[2018-04-28] MEDS: MEMANTINE 10 MG TAB PO SCH (08:37)
[2018-04-28] MEDS: MEROPENEM 1GM 100 ML IV SCH ×2 (08:37→17:19)
[2018-04-28] MEDS: SODIUM CHLORIDE 0.9% 1000ML 1,000 ML IV SCH (08:37)
[2018-04-28] MEDS: DULOXETINE HCL 20 MG DELAYED RELEASE PO SCH (08:37)
[2018-04-28] MEDS: GLIMEPIRIDE 2 MG TAB PO SCH ×2 (08:37→17:19)
[2018-04-28] MEDS: LEVETIRACETAM 500 MG TAB PO SCH (08:37)
[2018-04-28] MEDS: LACTOBACILLUS ACIDOPHILUS CAPSULE PO SCH (08:37)
[2018-04-28] MEDS: NON-FORMULARY MEDICATION (Linagliptin (Tradjenta) 5 MG) PO SCH (08:38)
[2018-04-28] MEDS: METOPROLOL TARTRATE 50 MG TAB PO SCH (08:38)
[2018-04-28] MEDS: LOSARTAN POTASSIUM 25 MG TAB PO SCH (08:38)
[2018-04-28] MEDS: NIFEDIPINE CR 30 MG TAB PO SCH (08:39)
[2018-04-28 11:50] VITALS: BP 142/65
--- NOTE | 2018-04-28 12:28 | NUR ---
CM SPOKE WITH PATIENT AND PATIENT WITH SERBIAN SPEAKING ESTIMATING MANAGER ROXANA. PATIENT AND PATIENT EDUCATED ON HOME HEALTH SERVICES WITH IV ABX VS [facility]ACILITY SERVICES. PATIENT AND PATIENT CALLED [facility] REGARDING BEST DECISION. HOSSEIN IS [place] SPEAKING. CM REITERATED INFORMATION. PATIENT AND PAITENT FAMILY STATES THEY ARE WILLING TO LEARN TO GIVE IV ABX AND WILL PAY ANY OUT OF POCKET EXPENSES THAT MAY BE NEEDED. PATIENT HAS DAUGHTER THAT IS WILLING TO GIVE ABX ON TIME. PATIENT CHOSE HOME HEALTH WITH IV ABX SERVICES. PATIENT GIVEN CHOICES FOR HOME HEALTH COMPANIES AND IV ABX INFUSION. PATIENT WANTS [facility] FOR IV ABX SERVICES AND REQUESTED THEY SET UP HOME HEALTH SERVICES. CHOICE LETTER PLACED ON CHART. CLINICAL FAXED TO [facility]: (F) [phone] (P) [phone] [facility] CATAL[facility] [phone] PENDING SET UP FOR DISCHARGE. DR. CISNEROS TO F/U WITH PATIENT REGARDING NOLASCO
--- NOTE | 2018-04-28 13:00 | NUR ---
pt refusing to turn, teaching provided on importance of presure relief to prevent skin breakdown and continued to refuse. at bedside during teaching as well.
--- NOTE | 2018-04-28 15:12 | NUR ---
PATIENT SONHOSSEIN CALLED CM WITH [facility] THAT PATIENT WAS NEEDING A LOT OF ASSISTANCE FOR MOBILITY AND WISHED TO LOOK INTO [facility]. PATIENT SON INFORMED THAT THIS WAS THE CONCERN OF THE CONVERSATION i HAD WITH HIM AND HIS FAMILY THE DAY BEFORE BUT THEY INSISTED AND CHOSE TO RETURN HOME ON IV ABX THERAPY. CM ALSO SPOKE WITH PATIENT SON REGARDING WAYS TO GET [facility]AIL SERVICES THROUGH HIS PRIMARY CARE PROVIDER. PATIENT SON FRUSTRATED AND STATES "I WILL JUST GO TO YOUR HIGHER UP." CM TELL PATIENT SON, " IF THERE IS SOMETHING i CAN HELP YOU WITH i AM MORE THAN WILLING TO HELP", SON THEN HANGS UP IN CM FACE. CM SPEAKS TO BRYANNA AVINA REGRADING PATIENT FAMILY [facility]EVANCES. BRYANNA AVINA AND DR. RIVAS OFFICE FOLLOWING UP WITH FAMILY.
--- NOTE | 2018-04-28 15:43 | NUR ---
spoke to Angelia GOULD, and she states patient may d/c home once home health and IV ABX is set up.
--- NOTE | 2018-04-28 16:12 | NUR ---
PATIENT BEING DISCHARGED HOME WITH HOME HEALTH PT EVAL & TREAT AND IV ABX THERAPY: IV ANTIBIOTIC COMPANY: CONFIRMED ADMISSION FROM [facility]TA[facility] FAXED TO [facility]: (F) [phone] (P) [phone] HOME HEALTH COMPANY FOR PT EVAL & TREAT: CONFIRMED ADMISSION FROM [facility] (P) [phone] [facility] (P) [phone], NOTIFIED AND GIVEN INFORMATION FOR BOTH COMPANIES. PATIENT AND PATIENT NOTIFIED.
--- NOTE | 2018-04-28 16:16 | NUR ---
[facility] ([phone]) TO TRANSPORT PATIENT HOME. TRANSPORTATION SET UP BY PATIENT SON.
[2018-04-28 16:32] VITALS: BP 121/59
[2018-04-28 17:09] LABS: INR 1.11; PROTHROMBIN TIME 15.3 seconds (11.9-14.5)
[2018-04-28 17:10] LABS: PARTIAL THROMBOPLASTIN TIME 29.2 seconds (23.8-35.5)
[2018-04-28] MEDS: WARFARIN SOD 2 MG TAB PO SCH (17:19)
[2018-04-28 19:54] VITALS: BP 117/58
--- NOTE | 2018-04-28 20:20 | NUR ---
WILIAM AND SPOKE TO DR LARIOS RECEIVED CLEARANCE FOR DISCHARGE.
--- NOTE | 2018-04-28 21:16 | NUR ---
PT'S SON WANTING TO SPEAK WITH TRASH COLLECTOR SUPERVISOR REGARDING DISCHARGE,PUMP HOUSE TECHNICIAN YONI CALLED AND NOTIFIED.PUMP HOUSE TECHNICIAN SPEAKING WITH PT'S SON IN ROOM AT THIS TIME.
--- NOTE | 2018-04-28 21:53 | Diagnostic Imaging Report ---
CHEST XRAY LINE PLACEMENT, 04/28/2018 8:50 PM Technique: CHEST XRAY LINE PLACEMENT Comparison: 04/26/2018 Clinical history: PICC line placement Findings: See Impression Impression: Limited by portable technique and marked rotation Lines/Tubes: Left PICC tip overlies the expected SVC given marked rotation. Recommend attention on follow-up more center positioning. 2. Cardiomediastinal silhouette, lungs and pleural spaces not well assessed. No pneumothorax visualized. Signed by: Dr Noa Hernandes MD on 04/28/2018 9:49 PM
--- NOTE | 2018-04-28 21:55 | NUR ---
IV TO LEFT FA TAKEN OUT,CATH TIP NOTED INTACT.DRESSING APPLIED.NO BLEEDING NOTED.PT'S PICC LINE TO RIGHT UPPER ARM ASYMPTOMATIC AND INTACT.DISCHARGE INSTRUCTION PROVIDED TO PT AND SON.PRESCRIPTION GIVEN TO PT/SON,COPY PLACED IN CHART.ALL PERSONAL BELONGINGS TAKEN WITH THE PT.SON AND OTHER FAMILY MEMBERS PRESENT AT THE TIME OF DISCHARGE.
--- NOTE | 2018-04-28 21:59 | NUR ---
PT LEFT UNIT VIA WHEELCHAIR WITH SON AND OTHER FAMILY MEMBERS AT THIS TIME WITH NO S/S OF DISTRESS.
--- NOTE | 2018-04-28 22:00 | NUR ---
PT'S TELEMETRY BOX RETUNED TO RESPONSIBLE DEPARTMENT
--- NOTE | 2018-04-29 15:02 | Discharge Summary ---
ADMISSION DIAGNOSES 1. Urinary tract infection present on admission with sepsis. 2. Hypertension. 3. Hyperlipidemia. 4. Type 2 diabetes. 5. Depression. 6. Neuropathy. 7. History of seizures. 8. Dementia. 9. Obesity. 10. Hypokalemia. 11. Hypocalcemia. 12. Right knee pain. 13. History of PE. 14. Hyponatremia. DISCHARGE DIAGNOSES 1. Urinary tract infection present on admission with sepsis. 2. Hypertension. 3. Hyperlipidemia. 4. Type 2 diabetes. 5. Depression. 6. Neuropathy. 7. History of seizures. 8. Dementia. 9. Obesity. 10. Hypokalemia. 11. Hypocalcemia. 12. Right knee pain. 13. History of PE. 14. Hyponatremia. 15. Ruled out right knee fracture. 16. Extended-spectrum beta-lactamase of the urine. 17. Ruled out bilateral lower extremity deep vein thrombosis. HISTORY: Patient has a history of hyperlipidemia, type 2 diabetes, hypertension, seizures, neuropathy, depression, dementia, multiple PEs. SURGICAL HISTORY: Right inguinal hernia repair. FAMILY HISTORY: Patient's sister and father had cancer. SOCIAL HISTORY: Noncontributory. HOSPITAL COURSE: A 72-year-old female complains of her Stanley being clogged over the last 2 days as her urinary output continued to decline. She denies cramping, pain, hematuria, dysuria. She says the Stanley was put in back in September due to her being bedridden due to right knee pain and urinary retention. When asked about her studies done at [facility] back in September, they said all of the images were negative of the right knee. On admission patient was started on Merrem, and Urology was consulted. Patient started on home medicines for chronic diagnoses. Chest x-ray showed low lung volumes with vascular crowding and bibasilar atelectasis. Due to the patient's reluctancy to straighten out her right leg, an x-ray was done that showed no fractures on images, compromised exam due to patient contraction. Bilateral lower extremity venous Doppler was negative for DVT. EKG showed sinus tach with occasional PVCs. Echo showed an EF of 55% to 60% with trace MR. Urine culture came back positive for ESBL. Blood cultures were negative. Physical Therapy was consulted. As the x-ray was negative, it is unclear why the patient would not walk. So, per Ortho they did a steroid injection of the right knee, and mobilization with physical therapy was recommended per Ortho. Per Ortho report it is quite unusual for someone to develop such flexion contracture in a short amount of time apart from some neuromuscular disease. I discussed this with the patient and many times. They said that they would work with physical therapy but appeared to make very little progress. I explained to the patient that the x-rays were negative. There was no physical reason for her to not get out of bed and walk. I said if the reason is pain, then we can control your pain; if the reason is weakness, then we can help you get physical therapy. Once the urine culture came back positive for ESBL, patient continued to say that she wanted to go home with IV antibiotics. I discussed the need for SNF/long-term facility due to the patient's reluctancy to walk and the need for IV antibiotics. The patient and continued to refuse long-term placement. The nurses discussed with the patient and family about long-term. They continued to refuse. Case Management discussed long-term with the family, and they continued to refuse. So, a PICC line was placed on the day of discharge and patient was sent home with 14 days total of Merrem IV antibiotic for ESBL. She was also given tramadol for pain in hopes that it will help her ambulate more, and she was sent home with physical therapy as well. As patient was at [facility] recently, I looked at her images from [place] and all she had done over there was an x-ray which was also negative. She also had inpatient rehab therapy prior to being discharged home back in September. Vital signs are stable, patient afebrile. Patient will discharge home with IV antibiotic per her wishes and family wishes as well. She will follow up with Primary Care in 1 to [address] Lundberg for studies related to urinary retention and long-term Stanley. Dictated by: Angelia Huntley NP TRAVIS RIVAS MD Job#: [id number]
== END 2018-04-28 23:08 | disposition home health service (06) | DRG 698 ==
LOC: ER 12:17 → ERHOLD 15:55 → MED/SURG 17:23 → MED/SURG2 04-27 19:50
PROVIDERS: ADMIT Internal Medicine; ATTEND Internal Medicine
PROC: 3E0U33Z Introduction of Anti-inflammatory into Joints, Percutaneous Approach (ICD-10-PCS; principal; 2018-04-27)
PROC: 3E0U3BZ Introduction of Anesthetic Agent into Joints, Percutaneous Approach (ICD-10-PCS; 2018-04-27)
PROC: 02HV33Z Insertion of Infusion Device into Superior Vena Cava, Percutaneous Approach (ICD-10-PCS; 2018-04-28)
DX: T83.518A Infection and inflammatory reaction due to other urinary catheter, initial encounter (principal); A41.9 Sepsis, unspecified organism; N39.0 Urinary tract infection, site not specified; E87.1 Hypo-osmolality and hyponatremia; Z68.42 Body mass index [BMI] 45.0-49.9, adult; Z74.01 Bed confinement status; F32.9 Major depressive disorder, single episode, unspecified; F03.90 Unspecified dementia, unspecified severity, without behavioral disturbance, psychotic disturbance, mood disturbance, and anxiety; Z86.711 Personal history of pulmonary embolism; B96.20 Unspecified Escherichia coli [E. coli] as the cause of diseases classified elsewhere; Z16.12 Extended spectrum beta lactamase (ESBL) resistance; E66.9 Obesity, unspecified; E11.42 Type 2 diabetes mellitus with diabetic polyneuropathy; Z79.4 Long term (current) use of insulin; E83.51 Hypocalcemia; G40.909 Epilepsy, unspecified, not intractable, without status epilepticus; E87.6 Hypokalemia; E78.5 Hyperlipidemia, unspecified; R33.9 Retention of urine, unspecified; M24.561 Contracture, right knee; E11.65 Type 2 diabetes mellitus with hyperglycemia; T83.098A Other mechanical complication of other urinary catheter, initial encounter
CPT/HCPCS: 36415; 36569; 51700; 71045; 80048; 80053; 81001; 82948; 83036; 83605; 83735; 83880; 84439; 84443; 85025; 85610; 85730; 87040; 87086; 87186; 93005; 93306; 93970; 97139; 99284; J1450; J1885; J1940; J3480; J7030

== ENCOUNTER 2018-05-01 01:16 | Inpatient (IN) | payer MEDICARE ==
[2018-05-01] VITALS (8 sets, daily range): BP systolic 126–145; BP diastolic 59–80
[~2018-05-01] VITALS: Ht 149.9 cm; Wt 77.2 kg
[~2018-05-01 01:16] MED LIST changes: +ACETAMINOPHEN325 M1 PO; +ATORVASTATIN CA10 MG PO; +CYMBALTA20 MG PO; +GABAPENTIN100 MG PO; +GLIMEPIRIDE2 MG PO; +LOSARTAN POTASS25 MG PO; +PROBIOTIC & AC1 EACH PO; +TRADJENTA5 MG PO; +ULTRAM 50MG50 MG PO; +WARFARIN SODIUM2 MG PO
--- OUTSIDE RECORDS SUMMARY | 2018-05-01 01:18 | XMS REPORT ---
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 Allergies, Adverse Reactions, Alerts This patient has no known allergies or adverse reactions. Medications This patient has no known medications. Results Test Description Test Time Test Comments Text Results Atomic Results Result Comments CHEST XRAY LINE PLACEMENT 2018-04-28 21:48:00 [place] [address] Patient Name: CARLOS BARCENAS MR #: [id number] : 1945 Age/Sex: 72/F Req #: [id number] [facility] Physician: TRAVIS RIVAS MD Ordered by: TRAVIS RIVAS MD Report #: [id number] Location: MED/SURG2 Room/Bed: [facility] Procedure: [id number] DX/CHEST XRAY LINE PLACEMENT Exam Date: 04/28/18 Exam Time: 2104 REPORT STATUS: Signed CHEST XRAY LINE PLACEMENT, 04/28/2018 8:50 PM Technique: CHEST XRAY LINE PLACEMENT Comparison: 04/26/2018 Clinical history: PICC line placement Findings: See Impression Impression: Limited by portable technique and marked rotation Lines/Tubes: Left PICC tip overlies the expected SVC given marked rotation. Recommend attention on follow-up more center positioning. 2. Cardiomediastinal silhouette, lungs and pleural spaces not well assessed. No pneumothorax visualized. Signed by: Dr Shaila Hernandes MD on 04/28/2018 9:49 PM Dictated By: SHAILA HERNANDES MD 48 Transcribed By: BLAKE on 04/28/182148 COPY TO: TRAVIS RIVAS MD KNEE RIGHT 1-2 VIEWS 2018-04-26 07:55:00 [place] [address] Patient Name: CARLOS BARCENAS MR #: [id number] : 1945 Age/Sex: 72/F Req #: [id number] Adm Physician: TRAVIS RIVAS MD Ordered by: Angelia Gonzalez NP Report #: [id number] Location: MED/SURG Room/Bed: [facility] Procedure: [id number] DX/KNEE RIGHT 1-2 VIEWS Exam Date: Exam Time: REPORT STATUS: Signed Knee limited right CPT code: 57248 Indication: Pain and limited range of motion status post fall Technique: AP and cross table lateral view obtained of the right knee. Comparison: None Findings: Study is compromised due to patient contraction. No evidence of fracture or dislocation on lateral image. AP image does not include the femur or patella. Visualized portions of the tibia and fibula are intact. No evidence of knee effusion or radiopaque foreign body. IMPRESSION: Compromised examination due to patient contraction. No fractures on provided images. Signed by: Dr. Mohan Delgado MD on 04/26/2018 7:57 AM Dictated By: MOHAN DELGADO MD 6 Transcribed By: BLAKE on 04/26/18756 COPY TO: ANGELIA GONZALEZ NP CHEST SINGLE (PORTABLE) 2018-04-26 02:00:00 [place] [address] Patient Name: CARLOS BARCENAS MR #: [id number] : 1945 Age/Sex: 72/F Req #: [id number] Adm Physician: TRAVIS RIVAS MD Ordered by: MONTSE TREVIZO PA-C Report #: [id number] Location: MED/SURG Room/Bed: [facility] Procedure: [id number] DX/CHEST SINGLE (PORTABLE) Exam Date: 04/26/18 Exam Time: 0110 REPORT STATUS: Signed EXAMINATION: CHEST SINGLE (PORTABLE) INDICATION: SEPSIS PROTOCOL COMPARISON: None FINDINGS: AP view TUBES and LINES: None. LUNGS: Low lung volumes with vascular crowding and bibasilar atelectasis. PLEURA: No pleural effusion or pneumothorax. HEART AND MEDIASTINUM: The cardiomediastinal silhouette is unremarkable for technique. BONES AND SOFT TISSUES: No acute osseous lesion. Soft tissues are unremarkable. UPPER ABDOMEN: No free air under the diaphragm. IMPRESSION: Low lung volumes with vascular crowding and bibasilar atelectasis. Signed by: DR. Dino Khan MD on 04/26/2018 2:01 AM Dictated By: DINO KHAN MD 0 Transcribed By: BLAKE on 04/26/18200 COPY TO: MONTSE TREVIZO PA-C
--- NOTE | 2018-05-01 03:17 | Diagnostic Imaging Report ---
CHEST SINGLE (PORTABLE), 05/01/2018 2:21 AM Technique: CHEST SINGLE (PORTABLE) Comparison: 04/28/2018 Clinical history: Placement of PICC line Findings: See Impression Impression: 1. Lines/Tubes: Right PICC seen to the expected cavoatrial junction. 2. Prominent cardiomediastinal silhouette, accentuated by technique. 3. Impression on the right trachea which is nonspecific but may be related to a thyroid goiter. 4. No consolidation. No significant effusion or pneumothorax. Signed by: Dr Noa Hernandes MD on 05/01/2018 3:14 AM
[2018-05-01 03:21] LABS: BASOPHILS % 0.2 % (0.0-1.0); EOSINOPHILS # (AUTO) 0.1 (0.0-0.4); EOSINOPHILS % 0.5 % (0.0-6.0); HEMATOCRIT 41.9 % (34.2-44.1); HEMOGLOBIN 13.7 g/dL (12.0-16.0); LYMPHOCYTES # (AUTO) 1.9 (1.0-3.2); LYMPHOCYTES % 14.5 % (18.0-39.1); MEAN CORPUSCULAR HEMOGLOBIN 25.6 pg (28-32); MEAN CORPUSCULAR HGB CONC 32.7 g/dL (31-35); MEAN CORPUSCULAR VOLUME 78.3 fL (81-99); MONOCYTES # (AUTO) 0.9 (0.2-0.8); MONOCYTES % 6.9 % (4.4-11.3); NEUTROPHILS # (AUTO) 10.1 (2.1-6.9); PLATELET COUNT 248 x10e3/uL (140-360); RED BLOOD COUNT 5.35 x10e6/uL (3.6-5.1); RED CELL DISTRIBUTION WIDTH 14.5 % (11.7-14.4)
[2018-05-01 03:37] LABS: ALANINE AMINOTRANSFERASE 30 IU/L (0-55); ALBUMIN 2.6 g/dL (3.5-5.0); ALBUMIN/GLOBULIN RATIO 0.8 (0.8-2.0); ALKALINE PHOSPHATASE 87 IU/L (40-150); ANION GAP 14.3 mmol/L (8-16); BLOOD UREA NITROGEN 18 mg/dL (7-26); BUN/CREATININE RATIO 30 (6-25); CALCIUM 8.7 mg/dL (8.4-10.2); CARBON DIOXIDE 24 mmol/L (22-29); CHLORIDE 98 mmol/L (98-107); CREATININE, SERUM 0.61 mg/dL (0.57-1.11); EST GLOMERULAR FILTRATION RATE > 60 ML/MIN (60-); GLUCOSE 243 mg/dL (74-118); POTASSIUM 3.3 mmol/L (3.5-5.1); SODIUM 133 mmol/L (136-145)
[2018-05-01] MEDS ORDERED: DEXTROSE 50% SYRINGE 50 ML IV PRN (03:45)
[2018-05-01] MEDS ORDERED: ONDANSETRON HCL INJ 2 MG/ML VIAL IV PRN (03:45)
[2018-05-01] MEDS ORDERED: KCL 20MEQ/.9 SOD CHL 1,000 ML IV ONE (03:45)
--- NOTE | 2018-05-01 04:30 | NUR ---
Patient received via stretcher from ER accompanied by . Admission history and Initial physical assessment conducted. Patient had no complaints of pain. Respirations even and non-labored. Stanley catheter draining dark yellow urine. Patient noted with hives on arms, lower abdomen and both legs. Patient oriented to room, call light and plan of care. Bed locked and in lowest position. Bed rails up x 2. Patient instructed to call for assistance when needed. Call light within reach.
[2018-05-01] MEDS ORDERED: MEROPENEM 500MG 500 MG in SODIUM CHLORIDE 0.9% 50ML 50 ML IV SCH (06:00)
--- NOTE | 2018-05-01 06:10 | NUR ---
Patient's potassium level recorded as 3.3. Dr. Gaytan paged. Awaiting call back.
[2018-05-01] MEDS ORDERED: SODIUM CHLORIDE 0.9% 250ML 250 ML ONE (06:18)
[2018-05-01] MEDS: DIPHENHYDRAMINE HCL INJ 50 MG/ML VIAL IV SCH ×3 (06:22→22:10)
[2018-05-01] MEDS ORDERED: POTASSIUM CHLORIDE 20 MEQ TAB CR PO NR (07:15)
[2018-05-01] MEDS: INSULIN REGULAR, HUMAN 100 UNIT/1 ML 3ML VIAL SQ SCH ×4 (07:30→21:00)
[2018-05-01] MEDS ORDERED: ACETAMINOPHEN 325 MG TAB PO PRN (07:30)
[2018-05-01] MEDS ORDERED: ACETAMINOPHEN/CODEINE 300MG - 30MG TAB PO PRN (07:45)
[2018-05-01] MEDS: (Linagliptin (Tradjenta) 5 MG) PO SCH (09:00)
--- NOTE | 2018-05-01 09:26 | NUR ---
SOCIAL WORK INITIAL ASSESSMENT Emergency Management Specialist to bedside to discuss plan of care with patient/family. CM/SW role and care transitions discussed. Anticipated discharge plan discussed along with duration of care. CM/SW discussed patients right to make decisions in care. CM/SW work hours given. Patient lives: IN OWN HOUSE WITH Admit/Transfer: VIA HOME POA/Emergency contact: DAUGHTER JOSE RAMON [phone] Current/Previous Home Health: NONE PCP/Follow-up Care: ELEONORA Current/Previous DME: WHEELCHAIR Other Services: USED TRANSLATION TABLET [employer] [id number] Employment Status: RETIRED Areas of Concerns: NONE Referral Needs: NONE Education Needs: NONE IMM/LENZ given and signed (if applicable): LENZ Goal for discharge: RETURN HOME AT BASELINE CM/SW left business card at the bedside with contact information. Name and number was also written on the patients whiteboard. Patient verbalized understanding of discussion. CM will follow-up with ongoing discharge and transition of care needs.
[2018-05-01] MEDS: GLIMEPIRIDE 2 MG TAB PO SCH ×2 (09:44→18:28)
[2018-05-01] MEDS: LOSARTAN POTASSIUM 25 MG TAB PO SCH (09:44)
[2018-05-01] MEDS: MEMANTINE 10 MG TAB PO SCH ×2 (09:45→18:28)
[2018-05-01] MEDS: NIFEDIPINE CR 30 MG TAB PO SCH (09:45)
[2018-05-01] MEDS: DULOXETINE HCL 20 MG DELAYED RELEASE PO SCH ×2 (09:45→18:28)
[2018-05-01] MEDS: METOPROLOL TARTRATE 50 MG TAB PO SCH ×2 (09:45→18:28)
[2018-05-01] MEDS: LEVETIRACETAM 500 MG TAB PO SCH ×2 (09:45→18:28)
--- NOTE | 2018-05-01 09:47 | NUR ---
Angelia PRODUCTION ENGINEER TRACK rounded, consulted dr forbes dt pt having FC, dr dowling aware of consult. consulted dr nickerson dt iv abx and possible reaction. Al made aware, will see pt today.
[2018-05-01] MEDS ORDERED: DIPHENHYDRAMINE HCL 25 MG CAP PO PRN (15:00)
[2018-05-01] MEDS ORDERED: HYDROCORTISONE 1% CREAM 30 GM TUBE TOP PRN (15:00)
--- NOTE | 2018-05-01 15:25 | Consultation ---
DATE OF CONSULTATION: May 01, 2018 INFECTIOUS DISEASE CONSULTATION REASONS FOR CONSULTATION 1. UTI. 2. Skin rash. HISTORY OF PRESENT ILLNESS: Ms. Nolasco is currently in the hospital. She is coming here with skin rash which started 2 days ago according to her with some itching. The rash is diffuse. It is maculopapular, all over her body. The patient denies any fever or chills. Apparently she was started on tramadol 3 days before that for pain in her knee. The patient is coming with a rash. The patient also has a Stanley catheter which was placed in September by Dr. Lundberg according to the . Apparently she recently was diagnosed with UTI. She was discharged home with IV antibiotic. Infectious disease was asked to see the patient. The patient is currently lying in bed comfortably. She denies any fever or chills. She does have a Stanley catheter as mentioned above. The patient has history of osteoarthritis. Back on April 05, her urine culture showed E. coli and enterococcus as well as jesu. Patient is currently on insulin, Keppra, Procardia, Lopressor, Cymbalta, Cozaar, Amaryl, Coumadin. I am told she is getting meropenem. LABORATORY DATA: White count 13.7. Hemoglobin 13.7 and hematocrit 41. Platelets 149. Sodium 133, potassium 3.3, creatinine 0.6. Liver enzymes are within normal limits. PHYSICAL EXAMINATION GENERAL: She is currently alert and oriented, does not seem to be in acute distress. VITALS: Stable, currently afebrile. HEENT: She is not icteric. NECK: Supple. CHEST: Clear. HEART: S1 and S2. No murmur. ABDOMEN: Soft. Obese. No tenderness. No hepatosplenomegaly. EXTREMITIES: No edema. SKIN: She has diffuse maculopapular rash, about 1 cm, all over her body. IMPRESSION 1. I think the patient has a drug reaction. It could be from the tramadol she took. 2. History of bacteriuria/urinary tract infection, treated. Discontinue meropenem. 3. Neuropathy. 4. Osteoarthritis. PLAN 1. I would suggest if we can to discontinue the Stanley catheter. 2. We will follow. Job#: [id number]
[2018-05-01 18:59] LABS: INR 0.99
[2018-05-01] MEDS: WARFARIN SOD 2 MG TAB PO SCH (19:06)
--- NOTE | 2018-05-01 19:35 | NUR ---
Patient received lying in bed. at bedside. Patient noted with increased break-out of hives over her back, face and thighs. Medication (Benadryl) administered according to eMar. Will continue to monitor.
--- NOTE | 2018-05-01 19:56 | NUR ---
pt did well throughout shift, no abx or pain meds admin. pt had dinner and then broke out into hives. dinner consisted of meatloaf w/ brown gravy, red potatoes w/ parsley, carrots, fresh fruit and salad with dutch dressing. Angelia notified. per son, pt was given iv abx at home at 6pm (dose 4) and began to c/o tingle. pt had sweet potatoe with milk for dinner. at 9pm, pt began to have high anxiety and worsening itching. at 12am, daughter came to admin next abx dose but noticed pt was completely with hives and itching. were advised by home health to come to ER. ed son to have family continue to notify staff when noticed hives breakout. per dr nickerson when rounding earlier, not suspecting rx to abx but stopped and given benadryl and cream. no abx was added. per Angelia PLASMA SPECIALIST, pt had positive culture and sepsis previous admit that dc [address] nickerson to request abx, no call back at this time. repaged and passed to night nurse to follow up.
[2018-05-01] MEDS: ATORVASTATIN 10 MG TAB PO SCH (22:10)
[2018-05-01] MEDS: GABAPENTIN 100 MG CAP PO SCH (22:10)
[2018-05-02] VITALS: BP 130/67
[2018-05-02 04:00] VITALS: BP 130/81
[2018-05-02 05:52] LABS: BASOPHILS % 0.2 % (0.0-1.0); EOSINOPHILS # (AUTO) 0.1 (0.0-0.4); EOSINOPHILS % 0.7 % (0.0-6.0); HEMATOCRIT 38.8 % (34.2-44.1); HEMOGLOBIN 12.7 g/dL (12.0-16.0); LYMPHOCYTES # (AUTO) 3.4 (1.0-3.2); LYMPHOCYTES % 22.6 % (18.0-39.1); MEAN CORPUSCULAR HEMOGLOBIN 25.4 pg (28-32); MEAN CORPUSCULAR HGB CONC 32.7 g/dL (31-35); MEAN CORPUSCULAR VOLUME 77.6 fL (81-99); MONOCYTES # (AUTO) 1.2 (0.2-0.8); MONOCYTES % 8.2 % (4.4-11.3); NEUTROPHILS # (AUTO) 10.2 (2.1-6.9); NEUTROPHILS % 67.3 % (38.7-80.0); PLATELET COUNT 257 x10e3/uL (140-360); RED CELL DISTRIBUTION WIDTH 14.7 % (11.7-14.4)
[2018-05-02] MEDS: DIPHENHYDRAMINE HCL INJ 50 MG/ML VIAL IV SCH ×3 (05:59→21:03)
--- NOTE | 2018-05-02 06:04 | NUR ---
Dr. Rosio Butts paged regarding orders to obtain IV antibiotics for patient. Awaiting call back.
[2018-05-02 06:13] LABS: ALANINE AMINOTRANSFERASE 34 IU/L (0-55); ALBUMIN 2.6 g/dL (3.5-5.0); ALBUMIN/GLOBULIN RATIO 0.8 (0.8-2.0); ALKALINE PHOSPHATASE 80 IU/L (40-150); ANION GAP 13.5 mmol/L (8-16); BLOOD UREA NITROGEN 21 mg/dL (7-26); BUN/CREATININE RATIO 34 (6-25); CALCIUM 8.6 mg/dL (8.4-10.2); CARBON DIOXIDE 26 mmol/L (22-29); CHLORIDE 103 mmol/L (98-107); CREATININE, SERUM 0.61 mg/dL (0.57-1.11); EST GLOMERULAR FILTRATION RATE > 60 ML/MIN (60-); GLUCOSE 156 mg/dL (74-118); POTASSIUM 3.5 mmol/L (3.5-5.1); SODIUM 139 mmol/L (136-145)
--- NOTE | 2018-05-02 07:21 | NUR ---
Patient resting comfortably. Shift report given to oncoming nurse.
[2018-05-02] MEDS: GLIMEPIRIDE 2 MG TAB PO SCH ×2 (07:23→16:34)
[2018-05-02 07:35] LABS: INR 0.96; PROTHROMBIN TIME 13.7 seconds (11.9-14.5)
[2018-05-02 08:30] VITALS: BP 138/74
[2018-05-02] MEDS: INSULIN REGULAR, HUMAN 100 UNIT/1 ML 3ML VIAL SQ SCH ×4 (08:52→21:00)
[2018-05-02] MEDS ORDERED: TYLENOL WITH C1 EACH PO (08:59)
--- NOTE | 2018-05-02 09:05 | NUR ---
PT DISCHARGING HOME TODAY ORDERS TO CONTINUE IV ABX WITH [facility] WITH [facility] CHO[facility] LETTER SIGNED AND ON CHART COPY TO PT CM CALLED [facility] AT [phone] AND SPOKE WITH [employer]- FAXED ORDERS TO [phone]; CONFIRMATION REC'D CM CALLED [facility] AND SPOKE WITH CARLEE DIANA [phone] FAX: [phone] FAXED ORDERS AND CONFIRMATION REC'D; NOTED ADDITIONAL 2 DAYS OF IV MERREM ORDERED
[2018-05-02] MEDS: MEROPENEM 500MG/ NS 50ML 50 ML IV SCH ×3 (09:19→21:40)
[2018-05-02] MEDS: METOPROLOL TARTRATE 50 MG TAB PO SCH ×2 (09:20→16:35)
[2018-05-02] MEDS: (Linagliptin (Tradjenta) 5 MG) PO SCH (09:20)
[2018-05-02] MEDS: LEVETIRACETAM 500 MG TAB PO SCH ×2 (09:20→16:35)
[2018-05-02] MEDS: NIFEDIPINE CR 30 MG TAB PO SCH (09:20)
[2018-05-02] MEDS: MEMANTINE 10 MG TAB PO SCH ×2 (09:20→16:35)
[2018-05-02] MEDS: DULOXETINE HCL 20 MG DELAYED RELEASE PO SCH ×2 (09:20→16:35)
[2018-05-02] MEDS: LOSARTAN POTASSIUM 25 MG TAB PO SCH (09:20)
[2018-05-02 09:28] VITALS: BP 138/60
--- NOTE | 2018-05-02 10:07 | NUR ---
COMMANDER INTERNAL AFFAIRS SPOKE WITH SON HOSSEIN [phone] OVER PHONE HE IS VERY CONCERNED ABOUT HIS MOTHER GOING HOME WITH HOME HEALTH WANTS HER TO GO TO SNF; WILL SPEAK WITH HIS MOTHER AND FATHER TODAY AND TRY TO ENCOURAGE SNF ALSO HAS QUESTIONS FOR [facility]/DR ROB TAMEZ CALLED [facility] WITH HOSSEIN'S PHONE NUMBER AND ASKED HER TO SPEAK WITH SON
--- NOTE | 2018-05-02 13:37 | NUR ---
ORDERS REC'D FOR SNF CM EXPLAINED TO PT, AND PT'S DAUGHTER IN DETAIL VIA WEB CONTENT DEVELOPER NURSE CAROLS THAT THERE IS A VERY HIGH LIKLIHOOD THAT SNF WILL BE DENIED BY INSURANCE CM CALLED AND [facility] HOME HEALTH AND HOME IV ABX ON HOLD UNTIL DETERMINATION MADE RE SNF PT HAS NOT WALKED IN APPROX 6 MONTHS AFTER A FALL AT HOME, DTR STATES HER MOTHER IS AFRAID TO WALK BECAUSE SHE THINKS SHE MIGHT FALL AGAIN P.T. WORKING WITH PT
--- NOTE | 2018-05-02 13:39 | NUR ---
CALLED AND SPOKE WITH DIANA CATALAN [phone] HE WANTS TO SEND CLINICALS TO [facility] WILL FAX CLINICALS TO [phone]
[2018-05-02] MEDS: WARFARIN SOD 2 MG TAB PO SCH (16:35)
[2018-05-02 17:26] VITALS: BP 117/59
--- NOTE | 2018-05-02 19:18 | NUR ---
Patient received sleeping in bed. at bedside. Aroused by tactile stimuli. No signs of pain or respiratory distress. Fall precautions maintained. Call light within reach.
[2018-05-02 20:00] VITALS: BP 111/56
[2018-05-02] MEDS: ATORVASTATIN 10 MG TAB PO SCH (21:03)
[2018-05-02] MEDS: GABAPENTIN 100 MG CAP PO SCH (21:03)
[2018-05-03] VITALS (8 sets, daily range): BP systolic 99–144; BP diastolic 52–70
--- NOTE | 2018-05-03 03:30 | NUR ---
Blood specimen sent to lab for analysis.
[2018-05-03] MEDS: DIPHENHYDRAMINE HCL INJ 50 MG/ML VIAL IV SCH ×3 (04:15→20:51)
[2018-05-03 04:18] LABS: BASOPHILS % 0.3 % (0.0-1.0); EOSINOPHILS # (AUTO) 0.3 (0.0-0.4); HEMATOCRIT 38.7 % (34.2-44.1); HEMOGLOBIN 12.5 g/dL (12.0-16.0); LYMPHOCYTES # (AUTO) 3.8 (1.0-3.2); LYMPHOCYTES % 27.9 % (18.0-39.1); MEAN CORPUSCULAR HEMOGLOBIN 25.5 pg (28-32); MEAN CORPUSCULAR HGB CONC 32.3 g/dL (31-35); MEAN CORPUSCULAR VOLUME 78.8 fL (81-99); MONOCYTES # (AUTO) 1.2 (0.2-0.8); MONOCYTES % 8.6 % (4.4-11.3); NEUTROPHILS # (AUTO) 8.3 (2.1-6.9); NEUTROPHILS % 59.9 % (38.7-80.0); PLATELET COUNT 259 x10e3/uL (140-360); RED BLOOD COUNT 4.91 x10e6/uL (3.6-5.1); RED CELL DISTRIBUTION WIDTH 14.9 % (11.7-14.4)
[2018-05-03] MEDS: MEROPENEM 500MG/ NS 50ML 50 ML IV SCH ×4 (04:30→20:49)
[2018-05-03 04:35] LABS: ANION GAP 12.6 mmol/L (8-16); BLOOD UREA NITROGEN 20 mg/dL (7-26); BUN/CREATININE RATIO 36 (6-25); CALCIUM 8.3 mg/dL (8.4-10.2); CARBON DIOXIDE 26 mmol/L (22-29); CHLORIDE 105 mmol/L (98-107); CREATININE, SERUM 0.55 mg/dL (0.57-1.11); EST GLOMERULAR FILTRATION RATE > 60 ML/MIN (60-); GLUCOSE 129 mg/dL (74-118); POTASSIUM 3.6 mmol/L (3.5-5.1); SODIUM 140 mmol/L (136-145)
[2018-05-03] MEDS ORDERED: HYDRALAZINE HCL 20 MG/ML VIAL IV PRN (06:00)
[2018-05-03] MEDS: INSULIN REGULAR, HUMAN 100 UNIT/1 ML 3ML VIAL SQ SCH ×4 (07:30→20:49)
[2018-05-03] MEDS: GLIMEPIRIDE 2 MG TAB PO SCH ×2 (07:46→16:57)
[2018-05-03] MEDS: FAMOTIDINE 20 MG TAB PO SCH ×2 (07:46→15:37)
[2018-05-03] MEDS: OYST-CAL-D 500MG TABLET PO SCH ×2 (09:17→16:57)
[2018-05-03] MEDS: LEVETIRACETAM 500 MG TAB PO SCH ×2 (09:20→16:57)
[2018-05-03] MEDS: DULOXETINE HCL 20 MG DELAYED RELEASE PO SCH ×2 (09:20→16:57)
[2018-05-03] MEDS: MEMANTINE 10 MG TAB PO SCH ×2 (09:20→16:57)
[2018-05-03] MEDS: (Linagliptin (Tradjenta) 5 MG) PO SCH (09:20)
[2018-05-03] MEDS: METOPROLOL TARTRATE 50 MG TAB PO SCH ×2 (09:21→16:37)
[2018-05-03] MEDS: NIFEDIPINE CR 30 MG TAB PO SCH (09:21)
[2018-05-03] MEDS: LOSARTAN POTASSIUM 25 MG TAB PO SCH (09:21)
[2018-05-03 09:29] LABS: INR 1.05; PROTHROMBIN TIME 14.6 seconds (11.9-14.5)
--- NOTE | 2018-05-03 16:20 | NUR ---
Report received from BARBARA Alexander. Patient without any complaints voiced at this and call sam within reach.
[2018-05-03] MEDS: WARFARIN SOD 2 MG TAB PO SCH (16:57)
--- NOTE | 2018-05-03 17:01 | NUR ---
Stanley catheter discontinued as ordered. Patient tolerated well
--- NOTE | 2018-05-03 19:02 | NUR ---
Patient voided in diaper, post void bladder scan was 218ml. Night nurse to notify Dr. Lundberg.
--- NOTE | 2018-05-03 19:43 | NUR ---
Dr. Vicki Lundberg notified of post void bladder scan of 218... orders received.
[2018-05-03] MEDS: ATORVASTATIN 10 MG TAB PO SCH (20:49)
[2018-05-03] MEDS: GABAPENTIN 100 MG CAP PO SCH (20:49)
[2018-05-04] MEDS: MEROPENEM 500MG/ NS 50ML 50 ML IV SCH ×4 (02:13→19:53)
[2018-05-04 05:08] LABS: BASOPHILS % 0.3 % (0.0-1.0); EOSINOPHILS # (AUTO) 0.4 (0.0-0.4); EOSINOPHILS % 2.6 % (0.0-6.0); HEMATOCRIT 38.1 % (34.2-44.1); HEMOGLOBIN 12.3 g/dL (12.0-16.0); LYMPHOCYTES # (AUTO) 3.1 (1.0-3.2); LYMPHOCYTES % 22.5 % (18.0-39.1); MEAN CORPUSCULAR HEMOGLOBIN 25.6 pg (28-32); MEAN CORPUSCULAR HGB CONC 32.3 g/dL (31-35); MEAN CORPUSCULAR VOLUME 79.4 fL (81-99); MONOCYTES # (AUTO) 1.2 (0.2-0.8); MONOCYTES % 8.4 % (4.4-11.3); NEUTROPHILS # (AUTO) 9.1 (2.1-6.9); PLATELET COUNT 246 x10e3/uL (140-360)
[2018-05-04] MEDS: DIPHENHYDRAMINE HCL INJ 50 MG/ML VIAL IV SCH ×3 (05:22→19:53)
[2018-05-04 05:26] LABS: INR 0.96; PROTHROMBIN TIME 13.7 seconds (11.9-14.5)
[2018-05-04 05:30] VITALS: BP 115/63
[2018-05-04 05:56] LABS: ANION GAP 11.5 mmol/L (8-16); BLOOD UREA NITROGEN 16 mg/dL (7-26); BUN/CREATININE RATIO 27 (6-25); CALCIUM 8.7 mg/dL (8.4-10.2); CARBON DIOXIDE 30 mmol/L (22-29); CHLORIDE 101 mmol/L (98-107); EST GLOMERULAR FILTRATION RATE > 60 ML/MIN (60-); GLUCOSE 181 mg/dL (74-118); MAGNESIUM 1.9 MG/DL (1.3-2.1); POTASSIUM 3.5 mmol/L (3.5-5.1); SODIUM 139 mmol/L (136-145)
[2018-05-04 07:47] VITALS: BP 119/64
[2018-05-04] MEDS: FAMOTIDINE 20 MG TAB PO SCH ×2 (08:01→16:15)
[2018-05-04] MEDS: GLIMEPIRIDE 2 MG TAB PO SCH ×2 (08:01→16:16)
[2018-05-04] MEDS: OYST-CAL-D 500MG TABLET PO SCH ×2 (08:02→16:16)
[2018-05-04] MEDS: (Linagliptin (Tradjenta) 5 MG) PO SCH (08:02)
[2018-05-04] MEDS: MEMANTINE 10 MG TAB PO SCH ×2 (08:02→16:16)
[2018-05-04] MEDS: LEVETIRACETAM 500 MG TAB PO SCH ×2 (08:02→16:16)
[2018-05-04] MEDS: DULOXETINE HCL 20 MG DELAYED RELEASE PO SCH ×2 (08:02→16:16)
[2018-05-04] MEDS: LOSARTAN POTASSIUM 25 MG TAB PO SCH (08:04)
[2018-05-04] MEDS: INSULIN REGULAR, HUMAN 100 UNIT/1 ML 3ML VIAL SQ SCH ×4 (08:04→19:53)
[2018-05-04] MEDS: METOPROLOL TARTRATE 50 MG TAB PO SCH ×2 (08:04→16:16)
[2018-05-04] MEDS: NIFEDIPINE CR 30 MG TAB PO SCH (08:05)
[2018-05-04 12:10] VITALS: BP 124/60
[2018-05-04 16:16] VITALS: BP 132/64
[2018-05-04] MEDS: WARFARIN SOD 2 MG TAB PO SCH (16:16)
[2018-05-04 19:33] VITALS: BP 118/59
[2018-05-04 19:34] VITALS: BP 118/59
[2018-05-04] MEDS: GABAPENTIN 100 MG CAP PO SCH (19:53)
[2018-05-04] MEDS: ATORVASTATIN 10 MG TAB PO SCH (19:53)
[2018-05-05] MEDS: DIPHENHYDRAMINE HCL INJ 50 MG/ML VIAL IV SCH ×2 (03:02→09:40)
[2018-05-05] MEDS: MEROPENEM 500MG/ NS 50ML 50 ML IV SCH ×2 (03:03→09:45)
[2018-05-05 03:16] VITALS: BP 128/71
[2018-05-05 03:22] LABS: BASOPHILS % 0.3 % (0.0-1.0); EOSINOPHILS # (AUTO) 0.3 (0.0-0.4); EOSINOPHILS % 2.1 % (0.0-6.0); HEMATOCRIT 37.5 % (34.2-44.1); HEMOGLOBIN 12.1 g/dL (12.0-16.0); LYMPHOCYTES # (AUTO) 2.8 (1.0-3.2); LYMPHOCYTES % 21.8 % (18.0-39.1); MEAN CORPUSCULAR HEMOGLOBIN 25.6 pg (28-32); MEAN CORPUSCULAR HGB CONC 32.3 g/dL (31-35); MEAN CORPUSCULAR VOLUME 79.4 fL (81-99); MONOCYTES # (AUTO) 1.1 (0.2-0.8); MONOCYTES % 8.4 % (4.4-11.3); NEUTROPHILS # (AUTO) 8.4 (2.1-6.9); NEUTROPHILS % 66.3 % (38.7-80.0); PLATELET COUNT 235 x10e3/uL (140-360); RED BLOOD COUNT 4.72 x10e6/uL (3.6-5.1); RED CELL DISTRIBUTION WIDTH 14.9 % (11.7-14.4)
[2018-05-05 03:34] LABS: INR 1.03; PROTHROMBIN TIME 14.4 seconds (11.9-14.5)
[2018-05-05 03:41] LABS: ANION GAP 10.4 mmol/L (8-16); BLOOD UREA NITROGEN 20 mg/dL (7-26); BUN/CREATININE RATIO 32 (6-25); CALCIUM 8.3 mg/dL (8.4-10.2); CARBON DIOXIDE 29 mmol/L (22-29); CHLORIDE 103 mmol/L (98-107); CREATININE, SERUM 0.63 mg/dL (0.57-1.11); EST GLOMERULAR FILTRATION RATE > 60 ML/MIN (60-); GLUCOSE 209 mg/dL (74-118); MAGNESIUM 1.8 MG/DL (1.3-2.1); POTASSIUM 3.4 mmol/L (3.5-5.1); SODIUM 139 mmol/L (136-145)
[2018-05-05] MEDS ORDERED: POTASSIUM CHLORIDE 20 MEQ TAB CR PO STA (05:50)
--- NOTE | 2018-05-05 06:45 | NUR ---
rounded with shift superintendent caustic cresylate nurse, patient aware of change. Patient in no distress, call sam within reach and at bedside.
[2018-05-05 07:10] VITALS: BP 120/65
[2018-05-05] MEDS: INSULIN REGULAR, HUMAN 100 UNIT/1 ML 3ML VIAL SQ SCH ×2 (07:21→11:50)
[2018-05-05] MEDS: FAMOTIDINE 20 MG TAB PO SCH (08:05)
[2018-05-05] MEDS: GLIMEPIRIDE 2 MG TAB PO SCH (08:09)
--- NOTE | 2018-05-05 08:37 | NUR ---
CALLED SON TO GET SSN DUE TO IT NOT BEING ON CHART FOR SNF [facility]. HE WILL CALL DAD AND RETURN CALL WITH INFORMATION.
--- NOTE | 2018-05-05 08:56 | NUR ---
FILLED OUT PASRR FILED ON CHART GOT IMM SIGNED AND FILED ON CHART WITH COPIES GIVEN TO PT IN ROOM. DISCHARGE SUMMARY FORM COMPLETED AND PUT ON CHART. RTF FILLED OUT AND GIVEN TO NURSES STATION FOR COMPLETION OF TRANSFER.
[2018-05-05] MEDS: (Linagliptin (Tradjenta) 5 MG) PO SCH (09:00)
--- NOTE | 2018-05-05 09:02 | NUR ---
PT SSN IS [id number]
[2018-05-05] MEDS: NIFEDIPINE CR 30 MG TAB PO SCH (09:40)
[2018-05-05] MEDS: DULOXETINE HCL 20 MG DELAYED RELEASE PO SCH (09:40)
[2018-05-05] MEDS: METOPROLOL TARTRATE 50 MG TAB PO SCH (09:40)
[2018-05-05] MEDS: LOSARTAN POTASSIUM 25 MG TAB PO SCH (09:40)
[2018-05-05] MEDS: LEVETIRACETAM 500 MG TAB PO SCH (09:40)
[2018-05-05] MEDS: MEMANTINE 10 MG TAB PO SCH (09:40)
[2018-05-05] MEDS: OYST-CAL-D 500MG TABLET PO SCH (09:40)
--- NOTE | 2018-05-05 10:14 | NUR ---
PT ACCEPTED TO [facility] ROOM [address], [address] [facility], [address] CALL REPORT TO [phone]. INFORMATION GIVEN TO NURSE FOR TRANSFER.
[2018-05-05 11:26] VITALS: BP 126/60
--- NOTE | 2018-05-05 11:55 | NUR ---
report given to Tosin at [facility] for transfer to SNF. Patient and family aware of upcoming transfer and verbalized understanding.
--- NOTE | 2018-05-05 13:35 | NUR ---
ambulance arrived for transport for patient to [facility] to [facility]. Patient alert and oriented and in no distress. Patient leaving the floor on stretcher.
--- NOTE | 2018-05-06 00:53 | Discharge Summary ---
ADMISSION DIAGNOSES 1. Extended-spectrum beta-lactamase of the urine, present on admission. 2. Allergic reaction. 3. Urinary retention with chronic Stanley. 4. Right knee pain. 5. Hypertension. 6. Neuropathy. 7. Depression. 8. Hyperlipidemia. 9. Type 2 diabetes. 10. Hypokalemia. 11. History of seizures. 12. Dementia. 13. PE. DISCHARGE DIAGNOSES 1. Extended-spectrum beta-lactamase of the urine, present on admission. 2. Allergic reaction. 3. Urinary retention with chronic Stanley. 4. Right knee pain. 5. Hypertension. 6. Neuropathy. 7. Depression. 8. Hyperlipidemia. 9. Type 2 diabetes. 10. Hypokalemia. 11. History of seizures. 12. Dementia. 13. PE. HISTORY: Patient has a history of ESBL of the urine, chronic Stanley, urinary retention, hypertension, hyperlipidemia, type 2 diabetes, depression, neuropathy, history of seizures, dementia, obesity, and PE. SURGICAL HISTORY: Right inguinal hernia repair. FAMILY HISTORY: Patient's sister and father had cancer. SOCIAL HISTORY: Noncontributory. HOSPITAL COURSE: A 72-year-old female complains of generalized rash that began yesterday. She complains of itching that resolved once Benadryl was given in the ER. She was recently started on Merrem and tramadol. She denies any other changes to diet, meds, lotions, skin care or exposure to new . On admission, patient was given Benadryl in the ER. Urology was consulted due to her chronic Stanley and urinary retention. ID was consulted due to patient having ESBL of the urine and possible allergy to Merrem. Chest x-ray was done which was negative but showed the right . Per ID, he believed that the patient is allergic to the tramadol and not the Merrem; so, he continued the Merrem antibiotic. Although the patient was initially refusing fci, she now agrees. So, patient will discharge to [facility] with a total of 14 days Merrem q.6 h. for ESBL of the urine. She also needs physical therapy due to her right lower extremity pain and generalized weakness. On previous admission, x-rays of the knee were negative. Ortho was consulted who stated there was no reason for the patient to be bed bound. Vital signs were stable. Patient afebrile. Patient and family understand discharge instructions and agree to plan. Dictated by Angelia Huntley, CURTAIN FELLER BLINDSTITCH TRAVIS RIVAS MD Job#: [id number]
== END 2018-05-05 13:50 | DRG 607 ==
LOC: ER 01:16 → ERHOLD 03:52 → IMCU 04:16 → OBSVTOIN 05-03 12:07
PROVIDERS: ADMIT Internal Medicine; ATTEND Internal Medicine
DX: L27.1 Localized skin eruption due to drugs and medicaments taken internally (principal); N39.0 Urinary tract infection, site not specified; T40.4X5A Adverse effect of other synthetic narcotics, initial encounter; B96.20 Unspecified Escherichia coli [E. coli] as the cause of diseases classified elsewhere; Z16.12 Extended spectrum beta lactamase (ESBL) resistance; M25.561 Pain in right knee; E87.6 Hypokalemia; R33.9 Retention of urine, unspecified; E66.9 Obesity, unspecified; Z68.34 Body mass index [BMI] 34.0-34.9, adult; E11.9 Type 2 diabetes mellitus without complications; G62.9 Polyneuropathy, unspecified; Z86.711 Personal history of pulmonary embolism; Z79.01 Long term (current) use of anticoagulants; F03.90 Unspecified dementia, unspecified severity, without behavioral disturbance, psychotic disturbance, mood disturbance, and anxiety
CPT/HCPCS: 36415; 71045; 80048; 80053; 82948; 83735; 83880; 85025; 85610; 87040; 97139; 99283; G0378; J1200; J2185; J7050